=== PATIENT | female | born 1970 | race Caucasian/White ===

== ENCOUNTER 2016-09-10 12:50 | Emergency (ER) | payer OTHER ==
[~2016-09-10] VITALS: Ht 165.1 cm; Wt 63.5 kg
[~2016-09-10 12:50] MED LIST: VICODIN 5-3001 EACH PO
[2016-09-10 12:55] VITALS: BP 138/90
--- NOTE | 2016-09-10 13:41 | ED GENERAL ADULT ---
History of Present Illness General Chief Complaint: General Adult Stated Complaint: EXPOSURE IN LAB Source: patient Exam Limitations: no limitations Vital Signs & Intake/Output Vital Signs & Intake/Output Vital Signs Date Time Temp Pulse Resp B/P B/P Pulse O2 O2 Flow FiO2 Mean Ox Delivery Rate 09/10 1322 100 Room Air 09/10 1255 97.6 64 16 138/90 99 Room Air Allergies Coded Allergies: No Known Allergies (12/13/15) Reconcile Medications Hydrocodone/Acetaminophen (Vicodin 5-300 MG Tablet) 1 EACH TABLET 1-2 TAB PO Q6P PRN PAIN Triage Note: PT WAS SPLASHED IN HER FACE HEAD AND LEFT EYE WITH FORMALIN AND SOME BLOOD. Triage Nurses Notes Reviewed? yes : No Patient currently breastfeeds: No HPI: Patient is a 46-year-old female presents for evaluation after blood exposure. Patient works in the [employer] and a specimen with blood and formalin accidentally splashed in patient's face, left eye and possibly her right eye. This occurred 1-2 hours ago. Patient flushed her eyes out immediately. Patient is unsure if she received a hepatitis B vaccination previously. In contacting occupational medicine patient received 2 doses of the hepatitis B vaccination, but they do not know if the patient received any vaccinations prior to that. It is not known if the source patient has any communicable diseases. Patient does not have any open wounds to her face. Patient was otherwise feeling well prior to this. (DAX VINCENT) Past History Travel History Traveled to [place] past 21 day No Medical History Any Pertinent Medical History? none Neurological: NONE EENT: NONE Cardiovascular: NONE Respiratory: NONE Gastrointestinal: NONE Hepatic: NONE Renal: NONE Musculoskeletal: NONE Psychiatric: NONE Endocrine: NONE Blood Disorders: NONE Cancer(s): NONE Surgical History Surgical History: appendectomy Psychosocial History What is your primary language Bangladeshi Tobacco Use: Never used ETOH Use: occasional use Illicit Drug Use: denies illicit drug use Family History Hx Contributory? No (DAX VINCENT) Review of Systems Review of Systems Constitutional: Reports: no symptoms. EENTM: Reports: no symptoms. Respiratory: Denies: short of breath. Cardiovascular: Denies: chest pain. GI: Denies: abdominal pain, nausea, vomiting. Skin: Reports: no symptoms. Neurological/Psychological: Reports: no symptoms. Hematologic/Endocrine: Reports: no symptoms. Immunologic/Allergic: Denies: HIV/AIDS. (DAX VINCENT) Physical Exam Physical Exam General Appearance: well developed/nourished, alert, awake Head: atraumatic, normal appearance Eyes: Bilateral: normal appearance, PERRL. Ears, Nose, Throat: normal ENT inspection, hearing grossly normal Neck: normal inspection, supple, full range of motion Respiratory: no respiratory distress Back: normal range of motion Extremities: normal inspection, normal range of motion Neurologic/Psych: awake, alert, oriented x 3, normal gait, normal mood/affect Skin: intact, normal color, warm/dry Lymphatic: no anterior cervical ascencion Core Measures ACS in differential dx? No CVA/TIA Diagnosis: No Severe Sepsis Present: No Septic Shock Present: No (DAX VINCENT) Progress Differential Diagnoses I considered the following diagnoses in my evaluation of the patient: body fluid exposure, communicable disease transmission Plan of Care: Orders Procedure Date/time Status HIV EXPOSURE/NEEDLESTICK 09/10 1351 Complete HUMAN BETA HCG SCREEN 09/10 1351 Complete HEPT C ANTIBODY 09/10 1351 Complete HEPT B SURFACE ANTIBODY 09/10 1351 Complete GAMMA GLUTAMYL TRANSFERASE 09/10 1351 Complete COMPREHENSIVE METABOLIC PANEL 09/10 1351 Complete CBC WITHOUT DIFFERENTIAL 09/10 1351 Complete TRNSFRASE ASPART AMINO 09/10 135 Complete TRNSFRAS ALANINE AMINO 09/10 1351 Complete Laboratory Tests 09/10/16 1415: Anion Gap 11, Estimated GFR > 60, BUN/Creatinine Ratio 28.6 H, Glucose 80, Calcium 8.9, Total Bilirubin 0.6, GGT 14, AST 29, ALT 33, Alkaline Phosphatase 55, Total Protein 7.0, Albumin 4.2, Globulin 2.8, Albumin/Globulin Ratio 1.5, Total Beta HCG NEGATIVE, CBC w Diff NO MAN DIFF REQ, RBC 4.17 L, MCV 92.1, MCH 31.5 H, RDW 12.7, MPV 8.5, Gran % 71.9, Lymphocytes % 18.3 L, Monocytes % 8.4, Eosinophils % 1.0, Basophils % 0.4, Absolute Granulocytes 4.6, Absolute Lymphocytes 1.2, Absolute Monocytes 0.5, Absolute Eosinophils 0.1, Absolute Basophils 0, PUBS MCHC 34.2, Hep Bs Antibody REACTIVE, Hepatitis C Antibody NONREACTIVE, HIV 1&2 Antibody NONREACTIVE 09/10/2016 2:06:33 PM: I contacted occupational medicine they report that patient has had 2 hepatitis B vaccinations but they have records of, they do not have records of any titer or previous vaccination. Patient declined HIV prophylaxis. Patient declined hepatitis B vaccination. (DAX VINCENT) Initial ED EKG: none (DAX VINCENT) Departure Departure Time of Disposition: 1407 Disposition: HOME OR SELF CARE Condition: Stable Clinical Impression Primary Impression: Exposure to blood or body fluid Referrals: ROYAL GARCES MD (PCP/Family) Additional Instructions: Follow-up with occupational medicine for further evaluation. Call this afternoon or tomorrow morning for appointment. Departure Forms: Customer Survey General Discharge Information (DAX VINCENT) PA/LABORATORY MONITOR Co-Sign Statement Statement: ED Attending supervision documentation- [] I saw and evaluated the patient. I have also reviewed all the pertinent lab results and diagnostic results. I agree with the findings and the plan of care as documented in the PA's/LABORATORY MONITOR's documentation. [X] I have reviewed the ED Record and agree with the PA's/LABORATORY MONITOR's documentation. [] Additions or exceptions (if any) to the PAs/LABORATORY MONITOR's note and plan are summarized below: [] (LOIS CARRION DO) Critical Care Note Critical Care Note Critical Care Time: non-applicable (DAX VINCENT)
[2016-09-10 14:27] LABS: ABSOLUTE BASOPHIL COUNT 0 /CUMM (0.0-0.2); ABSOLUTE EOSINOPHIL COUNT 0.1 /CUMM (0.0-0.7); ABSOLUTE GRANULOCYTE CT 4.6 /CUMM (1.4-6.5); ABSOLUTE LYMPH COUNT 1.2 /CUMM (1.2-3.4); ABSOLUTE MONOCYTE COUNT 0.5 /CUMM (0.10-0.60); BASOPHIL % 0.4 % (0.0-2.0); GRANULOCYTE % 71.9 % (42.2-75.2); HEMATOCRIT 38.4 % (37-47); MEAN CORPUSCULAR HGB 31.5 PG (27.0-31.0); MEAN CORPUSCULAR HGB CONC 34.2 G/DL (33.0-37.0); MEAN CORPUSCULAR VOLUME 92.1 FL (81.0-99.0); MEAN PLATELET VOLUME 8.5 FL (7.4-10.4); PLATELET COUNT 196 /CUMM (130-400); RBC DISTRIBUTION WIDTH 12.7 % (11.5-14.5); RED BLOOD CELL CT 4.17 /CUMM (4.20-5.40); WHITE BLOOD CELL COUNT 6.4 /CUMM (4.8-10.8)
== END 2016-09-10 14:52 ==
LOC: ERH 12:50
PROVIDERS: Physician Assistant
DX: Z77.21 Contact with and (suspected) exposure to potentially hazardous body fluids (principal)
CPT/HCPCS: 86803; 87389